=== PATIENT | male | born 1990 | race Caucasian/White ===

== ENCOUNTER 2021-02-17 12:42 | Emergency (ER) | payer SELFPAY ==
[2021-02-17 12:43] VITALS: BP 127/75; PULSE 67; RESP 18; TEMP 37; O2SAT 100; BMI 23.1
[2021-02-17 12:51] VITALS: BP 145/85; PULSE 63; RESP 13; O2SAT 97
--- NOTE | 2021-02-17 12:58 | RAD_ITS ---
STUDY: X-RAY CHEST REASON FOR EXAM: Male, 30 years old. Chest pain TECHNIQUE: Single AP portable view of the chest. COMPARISON: None. FINDINGS: EKG leads overlie the chest The lungs are clear and expanded. There is no demonstrated pleural abnormality. Normal size heart. Normal mediastinum and pancho. Normal visualized pulmonary arteries. Normal visualized aortic arch and descending thoracic aorta. Normal visualized thoracic spine. Normal visualized ribs, clavicles, and shoulders. There is no demonstrated abnormality of the visualized soft tissue structures of the upper abdomen. RAD/Chest 1 View (Portable) IMPRESSION: Normal x-ray examination of the chest. Electronically Signed: Blu Mayes MD at 14:02 EDT , Service support ,
--- NOTE | 2021-02-17 12:58 | EKG12_ITS ---
Test Reason : PALPS Blood Pressure : / mmHG Vent. Rate : 058 BPM Atrial Rate : 058 BPM P-R Int : 154 ms QRS Dur : 086 ms QT Int : 414 ms P-R-T Axes : 063 079 067 degrees QTc Int : 406 ms Sinus bradycardia with sinus arrhythmia Otherwise normal ECG Confirmed by LIBIA GUERRA, ESTUARDO ([id number]), book editor LEXIE GUY ([id number]) on 02/22/2021 10:00:43 A M Referred By: RENE/JETT Confirmed By:KEN REZA MD
--- NOTE | 2021-02-17 12:59 | ED.VIS.CHEST ---
HPI History of Present Illness Chief Complaint: Palpitations Narrative Narrative: 30-year-old male presenting with sensation of palpitations, near syncope, chest discomfort for the last couple of days. He states it typically happens more often at rest than when he is active. 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 He does not have any known medical problems except for a few years ago when he was seen at [facility] and told he had an enlarged heart. There was no intervention for this. No history of DVT/PE. Patient has self diagnosed himself with intermittent anxiety. This is never been evaluated. Patient states that today when he was walking into his shop he noticed that he felt a little bit lightheaded and was seeing stars. He laid down on the floor and put his feet up. He did not faint. He did not fall and injure himself. PFSH PFS Home Medications NK 02/17/21 [History Last Taken Unknown] Allergy/AdvReac Type Severity Reaction Status Date / Time No Known Allergies Allergy Verified 02/17/21 12:43 Social History Smoking Status: Former smoker ROS ROS ED Constitutional Constitutional ED: Denies chills, fever(s) or sweats Eyes Eyes: Denies blurry vision or change in vision ENT ENT ED: Denies ear pain, rhinorrhea or sore throat Cardiovascular Cardiovascular: Reports chest pain, palpitations, racing heartbeat and other Details: Lightheadedness/near syncope Respiratory/Chest Respiratory/Chest: Denies cough, dyspnea or sputum Gastrointestinal Gastrointestinal: Denies abdominal pain, constipation, diarrhea or vomiting Genitourinary Genitourinary ED: Denies dysuria, hematuria or urinary frequency Musculoskeletal Musculoskeletal: Denies arthralgias, myalgias or neck pain Integumentary Denies abscess, Abrasions or rash Neurologic Neurologic: Denies headache(s), paresthesias or weakness Psychiatric Psychiatric: Denies anxiety, depression, suicidal ideation or suicidal thoughts Endocrine Endocrinology: Denies polydipsia or polyuria EXAM Physical Exam Const Vital Signs: 02/17/21 12:43 02/17/21 12:51 02/17/21 13:46 Temperature 98.6 F Temperature Source Temporal Pulse Rate 67 63 Respiratory Rate 18 13 Blood Pressure 127/75 H 145/85 H Blood Pressure Mean 92 105 Pulse Ox 100 97 Oxygen Delivery Method Room Air Room Air Room Air 02/17/21 14:07 Temperature Temperature Source Pulse Rate 61 Respiratory Rate 12 Blood Pressure 129/78 H Blood Pressure Mean 95 Pulse Ox 99 Oxygen Delivery Method Room Air General Appearance ED: Negative for pallor HEENT Reports normocephalic, head/scalp atraumatic and moist mucous membranes Eyes PERRL and EOMs intact bilaterally Neck no lymphadenopathy and supple Chest Wall inspection of chest normal and palpation of chest normal Resp normal respiratory effort and clear to auscultation bilaterally Auscultation: Negative for rales, rhonchi or wheezes Cardio regular rate and regular rhythm GI normal to inspection, nondistended, normoactive bowel sounds and non-distended Auscultation: normoactive bowel sounds Palpation: soft Narrative: Deferred Back/Spine no CVA tenderness General Back: Negative for CVA tenderness Cervical Spine: Negative for cervical spine tenderness Extremity normal to inspection General Extremety ED: Yes edema and tenderness General Extremity: edema Neuro oriented x3 and CN's II-XII intact bilaterally Sensorium / Orientation: alert Motor Exam: strength 5/5 throughout Psych mental status grossly normal Attitude: No agitated Skin no rashes or lesions noted and no wounds General Skin Exam: Negative for jaundice or pallor Heart Score History: Slightly/Non-Suspicious ECG: Normal Age: </= 45 years Risk Factors: No Risk Factors Score: 0 MDM MDM MDM Narrative Medical decision making narrative: Patient presenting with chest discomfort and palpitations for last couple of days. Patient's EKG is sinus bradycardia with slight sinus arrhythmia and no signs of ischemic changes as interpreted by myself. Patient's chest x-ray is interpreted by myself shows no acute cardiopulmonary process. Patient is PERC negative. His heart score is 0. Lab work is unremarkable. Troponin is negative. Patient continued to exhibit anxious behavior and admits to feeling anxiety. He was given 0.5 mg of Ativan IV in the ED which did help him. Given the patient has had discomfort for a couple of days and his troponin is negative very low suspicion for ACS especially given that he is young and healthy and active. I will write him for some Vistaril at home. I feel at this time the patient is stable to be discharged home. He was given a primary care provider for follow-up. He is given return precautions. Impression: 1. Palpitations 2. Near syncope 3. Chest pain Lab Data Labs: Laboratory Results - last 24 hr 02/17/21 02/17/21 13:40 13:40 WBC 5.3 RBC 5.38 Hgb 16.0 Hct 45.4 MCV 84.4 MCH 29.7 MCHC 35.2 RDW Std Deviation 36.9 RDW Coeff of Mandeep 12.2 Plt Count 197 MPV 10.2 Immature Gran % (Auto) 0.200 Neut % (Auto) 48.8 Lymph % (Auto) 37.2 Lassen % (Auto) 10.8 H Eos % (Auto) 2.1 Baso % (Auto) 0.9 Absolute Neuts (auto) 2.6 Absolute Lymphs (auto) 1.97 Nucleated RBC % 0 Sodium 139 Potassium 3.5 Chloride 106 Carbon Dioxide 27.0 Anion Gap 6 BUN 10 Creatinine 1.12 Estim Creat Clear Calc 113.40 Est GFR (MDRD) Af Amer 100 Est GFR (MDRD) Non-Af 83 BUN/Creatinine Ratio 8.9 L Glucose 75 Calcium 9.3 Troponin I < 0.015 Radiography Diagnostic Testing: Radiology Impression Chest X-Ray 02/17/21 12:58 IMPRESSION: Normal x-ray examination of the chest. Electronically Signed: Blu Mayes MD at 14:02 EDT , Service support , Discharge Plan Triage Chief Complaint: Palpitations ED Provider: Hugo Murphy Dx/Rx/DC Orders Instructions: ED Chest Pain, Uncertain Cause, ED Palpitations, ED Near-Fainting, Uncertain Cause Prescriptions: No Action NK RF: 0 Primary Care Provider: Care Physician,No Primary Referrals: Jose Bell MD [NON-STAFF] - As Needed Care Physician,No Primary [Primary Care Provider] - Disposition Disposition: Home, self care
--- NOTE | 2021-02-17 13:04 | NURSING ---
NO OLD EKGS
[2021-02-17 13:51] LABS: Absolute Lymphocyte Count 1.97 X10^3/uL (0.83-4.51); Absolute Neutrophil Count 2.6 X10^3/uL (2.0-7.7); Basophil# 0.05 X10^3/uL; Basophil% 0.9 % (0-1); Eosinophil# 0.11 X10^3/uL; Eosinophils% 2.1 % (0-5); Hematocrit 45.4 % (40-54); Lymphocyte # 1.97 X10^3/ul (0.83-4.51); Lymphocyte % 37.2 % (19-41); Mean Corp Hgb Conc 35.2 g/dL (32-36); Mean Corpuscular Hgb 29.7 pg (27.0-32.0); Mean Corpuscular Volume 84.4 fL (80-94); Mean Platelet Vol. 10.2 fl (6.2-12.0); Monocyte# 0.57 X10^3/uL; Monocyte% 10.8 % (0-10); NRBC Flagged by Analyzer 0 % (0-5); Neutrophil # 2.58 X10^3/uL (2.7-7.7); Neutrophil % 48.8 % (47-70); Platelet Count 197 K/mm3 (150-450); RBC Distribution Width CV 12.2 % (11.6-14.6); RBC Distribution Width SD 36.9 fl (35.1-43.9); Red Blood Count 5.38 M/mm3 (4.6-6.2); White Blood Count 5.3 K/mm3 (4.4-11.0)
[2021-02-17] MEDS: LORazepam 2 MG/ML Syringe 0.5 MG IV (14:00)
[2021-02-17 14:07] VITALS: BP 129/78; PULSE 61; RESP 12; O2SAT 99
[2021-02-17 14:12] LABS: Anion Gap 6 (5-15); BUN 10 mg/dL (7-18); BUN/Creat Ratio 8.9 RATIO (10-20); Calcium,Total 9.3 mg/dL (8.5-10.1); Chloride 106 mmol/L (98-107); Creatinine, Serum 1.12 mg/dL (0.70-1.30); EST Glomerular Filtration Rate 83 mL/min (>60); Est Glom Filt Rate - Afr Amer 100 mL/min (>60); Glucose 75 mg/dL (74-106); Potassium 3.5 mmol/L (3.5-5.1); Sodium Level 139 mmol/L (136-145)
[2021-02-17 14:36] VITALS: BP 126/83; PULSE 54; RESP 13; O2SAT 99
== END 2021-02-17 14:38 | disposition home or self-care (01) ==
PROVIDERS: Emergency Provider Student in an Organized Health Care Education/Training Program
DX: R00.2 Palpitations (principal); R55 Syncope and collapse; R07.9 Chest pain, unspecified; Z87.891 Personal history of nicotine dependence
CPT/HCPCS: 71045; 80048; 84484; 85025; 93005; 96374; 99283; A4216